=== PATIENT | female | born 1970 ===

== ENCOUNTER 2020-12-13 10:58 | Outpatient (CLI) | payer OTHER | END 2020-12-13 11:00 | disposition home or self-care (01) | LOC: NUCLEAR 10:58 | DX: M25.50 Pain in unspecified joint (principal) | CPT/HCPCS: 78315; A9503 ==

== ENCOUNTER 2020-12-29 10:07 | Outpatient (CLI) | payer OTHER | END 2020-12-29 10:24 | disposition home or self-care (01) | LOC: TOM 10:07 | PROVIDERS: ATTEND Internal Medicine Rheumatology | DX: N13.8 Other obstructive and reflux uropathy (principal) ==